=== PATIENT | male | born 1940 | race Caucasian/White ===

== ENCOUNTER 2018-07-17 08:02 | Emergency (ER) | payer OTHER, BC ==
[~2018-07-17] VITALS: Ht 186.7 cm; Wt 115.0 kg
[~2018-07-17 08:02] MED LIST: ADLSR60 PO; APR25 PO; ASPEC325 PO; ATEN50TA8 PO; ATOR-24 PO; AVD5 PO; CARB1CAP8 PO; CHOL100010 PO; DVN80 PO; FRS/40 PO; MELO15TA3 PO; MULT-506 PO
[2018-07-17 08:05] VITALS: TEMP 36.7; Ht 186.7 cm; Wt 115.0 kg
[2018-07-17] MEDS ORDERED: SODIUM CHLORIDE 0.9% 500ML 500 ML IV STA (08:20)
[2018-07-17 08:50] VITALS: O2SAT 96
[2018-07-17 08:53] LABS: BASO % 0.7 %; BASO ABS # 0.04 K/uL (0-0.2); EOS % 0.5 %; EOS ABS # 0.03 K/uL (0-0.5); HEMATOCRIT 44.7 % (42-52); HEMOGLOBIN 15.1 g/dL (14.0-18.0); IG# 0.02 K/uL (0.00-0.02); LYMPH % 21.1 %; LYMPH ABS # 1.18 K/uL (1.2-3.4); MEAN CELL VOLUME 90.7 fL (80-100); MEAN CORPUSCULAR HEMOGLOBIN 30.6 pg (25-34); MEAN CORPUSCULAR HGB CONC 33.8 g/dl (32-36); MEAN PLATELET VOLUME 10.3 fL (7.4-10.4); MONO ABS # 0.39 K/uL (0.11-0.59); NEUT % 70.3 %; NEUT ABS # 3.93 K/uL (1.4-6.5); PLATELET COUNT 263 K/uL (130-400); RED CELL DISTRIBUTION WIDTH CV 12.7 % (11.5-14.5); RED CELL DISTRIBUTION WIDTH SD 41.9 fL (36.4-46.3); WHITE BLOOD COUNT 5.59 K/uL (4.8-10.8)
--- NOTE | 2018-07-17 08:57 | EMERGENCY ROOM VISIT NOTE ---
History Report prepared by Berenice: Evaristo Ferrell Under the Supervision of: Dr. Aguila Guerrier M.D. First contact with patient: 08:11 Chief Complaint: RECTAL BLEEDING Stated Complaint: BLOOD IN STOOLS History of Present Illness The patient is a 78 year old male who presents to the Emergency Room with complaints of intermittent episodes of rectal bleeding that he first noticed 2 days ago. The patient states that he was sitting on the commode to have his "morning bowel movement." He states that he sneezed twice while sitting on the toilet and noticed that the bowl was "full of dark red blood." He notes that it was not black or pink, but "dark red." The patient notes that he had a bowel movement this morning and there was similar blood in the toilet today. The patient had his look at the blood and she describes the bowl as holding "quite a bit" of "deep red" blood. The patient denies any unusual shortness of breath or weakness. He does not a slight increase in abdominal pain from his baseline pain. He does ass that he drinks Prune juice daily. He has had multiple colonoscopies and notes that he does have a history of polyps. He is on Aspirin 81, but no other blood thinners. Source of History: patient Onset: 2 days ago Position: other (Rectal) Quality: other (GI Bleed) Timing: intermittent (2 episodes) Associated Symptoms: + abdominal pain, No SOB, No weakness Review of Systems See HPI for pertinent positives & negatives. A total of 10 systems reviewed and were otherwise negative. Past Medical & Surgical Medical Problems: (1) Epilepsy (2) Hypertension (3) Spinal stenosis Social History Problems: (1) Poliomyelitis Family History Hypertension Social History Smoking Status: Never Smoker Alcohol Use: occasionally Marital Status: Housing Status: lives with family Current/Historical Medications Scheduled Aspirin (Aspirin), 1 DOSE PO DAILY Atenolol (Tenormin), 50 MG PO DAILY Atorvastatin (Lipitor), 40 MG PO DAILY Carbamazepine (Carbatrol), 400 MG PO BID Finasteride (Proscar), 5 MG PO DAILY Furosemide (Lasix), 40 MG PO BID Hydralazine Hcl (Apresoline), 50 MG PO QID Nifedipine (Nifedipine Er), 60 MG PO DAILY Valsartan (Diovan), 320 MG PO DAILY Allergies Coded Allergies: Escitalopram (Unverified Allergy, Severe, SEIZURES, 07/17/18) Sulfa Drugs (Verified Allergy, Unknown, ., 07/17/18) Lisinopril (Verified Adverse Reaction, Unknown, ., 07/17/18) Physical Exam Vital Signs Date Time Temp Pulse Resp B/P (MAP) Pulse Ox O2 Delivery O2 Flow Rate FiO2 07/17/18 11:11 71 16 163/82 96 07/17/18 09:25 80 24 156/84 95 Room Air 07/17/18 08:50 96 Room Air 07/17/18 08:46 92 07/17/18 08:05 36.7 89 17 149/87 97 Room Air Physical Exam GENERAL: Awake, alert, well-appearing, in no acute distress HENT: Normocephalic, atraumatic. Oropharynx unremarkable. EYES: Normal conjunctiva. Sclera non-icteric. NECK: Supple. No nuchal rigidity. FROM. No JVD. RESPIRATORY: Clear to auscultation. CARDIAC: Regular rate, normal rhythm. Extremities warm and well perfused. Pulses equal. ABDOMEN: Soft, non-distended. No tenderness to palpation. No rebound or guarding. No masses. RECTAL: Deferred. MUSCULOSKELETAL: Chest examination reveals no tenderness. The back is symmetrical on inspection without obvious abnormality. There is no CVA tenderness to palpation. No joint edema. LOWER EXTREMITIES: Calves are equal size bilaterally and non-tender. No edema. No discoloration. NEURO: Normal sensorium. No sensory or motor deficits noted. SKIN: No rash or jaundice noted. RECTAL: There is a large amount of dark red blood per rectum. Medical Decision & Procedures Laboratory Results 07/17/18 08:38 Red Blood Count 4.93, Mean Corpuscular Volume 90.7, Mean Corpuscular Hemoglobin 30.6, Mean Corpuscular Hemoglobin Concent 33.8, Mean Platelet Volume 10.3, Neutrophils (%) (Auto) 70.3, Lymphocytes (%) (Auto) 21.1, Monocytes (%) (Auto) 7.0, Eosinophils (%) (Auto) 0.5, Basophils (%) (Auto) 0.7, Neutrophils # (Auto) 3.93, Lymphocytes # (Auto) 1.18, Monocytes # (Auto) 0.39, Eosinophils # (Auto) 0.03, Basophils # (Auto) 0.04 8/17/18 08:38 Test 07/17/18 08:38 07/17/18 08:45 White Blood Count 5.59 K/uL (4.8-10.8) Red Blood Count 4.93 M/uL (4.7-6.1) Hemoglobin 15.1 g/dL (14.0-18.0) Hematocrit 44.7 % (42-52) Mean Corpuscular Volume 90.7 fL (80-100) Mean Corpuscular Hemoglobin 30.6 pg (25-34) Mean Corpuscular Hemoglobin Concent 33.8 g/dl (32-36) Platelet Count 263 K/uL (130-400) Mean Platelet Volume 10.3 fL (7.4-10.4) Neutrophils (%) (Auto) 70.3 % Lymphocytes (%) (Auto) 21.1 % Monocytes (%) (Auto) 7.0 % Eosinophils (%) (Auto) 0.5 % Basophils (%) (Auto) 0.7 % Neutrophils # (Auto) 3.93 K/uL (1.4-6.5) Lymphocytes # (Auto) 1.18 K/uL (1.2-3.4) Monocytes # (Auto) 0.39 K/uL (0.11-0.59) Eosinophils # (Auto) 0.03 K/uL (0-0.5) Basophils # (Auto) 0.04 K/uL (0-0.2) RDW Standard Deviation 41.9 fL (36.4-46.3) RDW Coefficient of Variation 12.7 % (11.5-14.5) Immature Granulocyte % (Auto) 0.4 % Immature Granulocyte # (Auto) 0.02 K/uL (0.00-0.02) Prothrombin Time 10.4 SECONDS (9.0-12.0) Prothromb Time International Ratio 1.0 (0.9-1.1) Activated Partial Thromboplast Time 24.9 SECONDS (21.0-31.0) Partial Thromboplastin Ratio 1.0 Anion Gap 12.0 mmol/L (3-11) Est Creatinine Clear Calc Drug Dose 125.5 ml/min Estimated GFR () 108.1 Estimated GFR (Non- 93.3 BUN/Creatinine Ratio 15.1 (10-20) Calcium Level 8.9 mg/dl (8.5-10.1) Total Bilirubin 0.3 mg/dl (0.2-1) Direct Bilirubin 0.1 mg/dl (0-0.2) Aspartate Amino Transf (AST/SGOT) 29 U/L (15-37) Alanine Aminotransferase (ALT/SGPT) 44 U/L (12-78) Alkaline Phosphatase 97 U/L (45-117) Total Protein 7.5 gm/dl (6.4-8.2) Albumin 3.8 gm/dl (3.4-5.0) Lipase 105 U/L (73-393) Urine Color YELLOW Urine Appearance CLEAR (CLEAR) Urine pH 5.0 (4.5-7.5) Urine Specific Sells 1.010 (1.000-1.030) Urine Protein NEG (NEG) Urine Glucose (UA) NEG (NEG) Urine Ketones NEG (NEG) Urine Occult Blood NEG (NEG) Urine Nitrite NEG (NEG) Urine Bilirubin NEG (NEG) Urine Urobilinogen NEG (NEG) Urine Leukocyte Esterase TRACE (NEG) Urine WBC (Auto) 1-5 /hpf (0-5) Urine RBC (Auto) 0-4 /hpf (0-4) Urine Hyaline Casts (Auto) 1-5 /lpf (0-5) Urine Epithelial Cells (Auto) 5-10 /lpf (0-5) Urine Bacteria (Auto) 1+ (NEG) Labs reviewed by ED physician. Medications Administered Medications (Trade) Dose Ordered Sig/Crystal Route Start Time Stop Time Status Last Admin Dose Admin Sodium Chloride 500 ml @ 999 mls/hr Q31M STAT IV 07/17/18 08:20 07/17/18 08:50 DC 07/17/18 08:56 999 MLS/HR Potassium Chloride (Klor-Con M10) 40 meq STK-MED ONCE .ROUTE 07/17/18 09:32 07/17/18 09:33 DC 07/17/18 09:35 40 MEQ ECG Per My Interpretation Indication: other (Rectal Bleed) Rate (beats per minute): 83 Rhythm: normal sinus Findings: no acute ischemic change, no ectopy, other (No GUILLERMO/STD) ED Course 0811: Past medical records reviewed. The patient was evaluated in room B10. A complete history and physical examination was performed. 0927: I discussed the case with Lindsay Elias PA-C. She will evaluate the patient 1053: I discussed the case with Lindsay again at this time. She suggests sending the patient home with MiraLax. 1112: Upon reexamination the patient is resting in bed. I discussed results and treatment plan with the patient. He verbalizes agreement and understanding. The patient is ready for discharge. Medical Decision Prior records/ancillary studies reviewed. Triage Nursing notes reviewed. Differential diagnosis: Etiologies such as diverticulosis, AVM, coagulopathy, colitis, inflammatory bowel disease, malignancy, Jeanne-Barnard tear, esophagitis, peptic ulcer disease , variceal bleed, gastritis, epistaxis, fissure, hemorrhoids, as well as others were entertained. This is a 78-year-old male who presents the emergency department complaining of rectal bleed. There is dark red blood on physical examination however the patient's hemoglobin is stable. Based on these findings I did discuss the case with gastroenterology cone chocolate dipper who came down and independently evaluated the patient. They felt that the patient was safe enough to be discharged home. I reiterated to return if they felt dizzy or developed any shortness of breath or chest pain. Patient and are in agreement with the treatment plan. Medication Reconcilliation Current Medication List: was personally reviewed by me Blood Pressure Screening Patient's blood pressure: Elevated blood pressure Blood pressure disposition: Elevated BP felt to be situational Consults Time Called: 920 Consulting Physician: Lindsay Elias PA-C Returned Call: [phone] I discussed the case with Lindsay Elias PA-C. She will evaluate the patient 1053: I discussed the case with Lindsay again at this time. She suggests sending the patient home with MiraLax. Impression Primary Impression: Rectal bleed Scribe Attestation The scribe's documentation has been prepared under my direction and personally reviewed by me in its entirety. I confirm that the note above accurately reflects all work, treatment, procedures, and medical decision making performed by me. Departure Information Dispostion Home / Self-Care Referrals Blas Barron D.O. (PCP) Forms HOME CARE DOCUMENTATION FORM, IMPORTANT VISIT INFORMATION, WORK / SCHOOL INSTRUCTIONS Patient Instructions My [facility] Additional Instructions Follow up with DR Carranza's office You have been examined and treated today on an emergency basis only. This is not a substitute for, or an effort to provide, complete comprehensive medical care. It is impossible to recognize and treat all injuries or illnesses in a single emergency department visit. It is therefore important that you follow up closely with Dr Barron. Call as soon as possible for an appointment. Thank you for your time and consideration. I look forward to speaking with you again soon. Please don't hesitate to call us if you have any questions.
[2018-07-17] MEDS ORDERED: ATOR-24 PO (09:00)
[2018-07-17] MEDS ORDERED: CRBSR/200 PO (09:00)
[2018-07-17] MEDS ORDERED: ATEN50TA8 PO (09:00)
[2018-07-17] MEDS ORDERED: ASPI-470 PO (09:00)
[2018-07-17] MEDS ORDERED: FINA5TAB PO (09:00)
[2018-07-17] MEDS ORDERED: FRS/40 PO (09:00)
[2018-07-17] MEDS ORDERED: NIFE60TA66 PO (09:00)
[2018-07-17] MEDS ORDERED: HYDR-4717 PO (09:00)
[2018-07-17] MEDS ORDERED: VALS320T PO (09:00)
[2018-07-17 09:02] LABS: PTT PATIENT 24.9 SECONDS (21.0-31.0)
[2018-07-17 09:15] LABS: ALBUMIN 3.8 gm/dl (3.4-5.0); CALCIUM 8.9 mg/dl (8.5-10.1); CREATININE 0.66 mg/dl (0.60-1.40); POTASSIUM 3.3 mmol/L (3.5-5.1); TOTAL PROTEIN 7.5 gm/dl (6.4-8.2)
[2018-07-17] MEDS ORDERED: POTASSIUM CHLORIDE 20 MEQ TABCR PO STA (09:19)
[2018-07-17] MEDS ORDERED: POTASSIUM CHLORIDE 10 MEQ TABCR ONE (09:32)
[2018-07-17 11:11] VITALS: BP 163/82; PULSE 71; O2SAT 96
--- NOTE | 2018-07-17 11:30 | Gastrointestinal Consultation ---
Gastrointestinal Consultation Date of Consultation: Jul 17, 2018 Attending Physician: Aguila Guerrier Consulting Physician: Kim Guerin MD Reason for Consultation: rectal bleeding History of Present Illness Patient is a 78 year old male with a PMH noted below presenting to the ED for evaluation of rectal bleeding. He reports passing intermittent dark red blood with BMs, starting two days ago. He has had 2 episodes since onset. He typically has a BM about once daily, but does have a hx of mild intermittent constipation as well as a hx of hemorrhoids. He drinks prune juice at home regularly to help with his bowels. He has baseline diffuse pain secondary to his spinal stenosis and hx of poliomyelitis. He denies any increased abdominal pain over baseline, and has no n/v or heartburn. Good appetite. No weight loss. Last colonoscopy was in 2013, showing sigmoid diverticulosis and 2 polyps, only one of which was retrieved. Pathology was consistent with an adenomatous polyp. He takes an 81mg aspirin but no additional blood thinners. Blood work shows a stable hgb of 15.1. Past Medical/Surgical History Medical Problems: (1) Rectal bleed Status: Acute Past Medical History: HTN, dyslipidemia, spinal stenosis, poliomyelitis, epilepsy, BPH, chronic renal insufficiency, Basal cell skin CA Past Surgical History: cholecystectomy, appendectomy, tonsillectomy&adenoidectomy, parotid gland tumor excision, cataract Family History Hypertension Social History Smoking Status: Never Smoker Alcohol Use: occasionally Marital Status: Housing Status: lives with family Allergies Coded Allergies: Escitalopram (Unverified Allergy, Severe, SEIZURES, 07/17/18) Sulfa Drugs (Verified Allergy, Unknown, ., 07/17/18) Lisinopril (Verified Adverse Reaction, Unknown, ., 07/17/18) Current Medications Home Meds and Scripts Medications Dose Route/Sig Max Daily Dose Days Date Category Dose Instructions Nifedipine Er (Nifedipine) 60 Mg Tab 60 Mg PO DAILY 07/17/18 Reported Aspirin Unknown Strength Tab 1 Dose PO DAILY 07/17/18 Reported PT LIST SAYS 500 MG Lasix (Furosemide) 40 Mg Tab 40 Mg PO BID 07/17/18 Reported Tenormin (Atenolol) 50 Mg Tab 50 Mg PO DAILY 07/17/18 Reported Diovan (Valsartan) 320 Mg Tab 320 Mg PO DAILY 07/17/18 Reported Apresoline (Hydralazine Hcl) 50 Mg Tab 50 Mg PO QID 07/17/18 Reported Carbatrol (Carbamazepine) 200 Mg Capcr 400 Mg PO BID 07/17/18 Reported TWO 200 MG CAPS TWICE DAILY Lipitor (Atorvastatin Calcium) 40 Mg Tab 40 Mg PO DAILY 07/17/18 Reported Proscar (Finasteride) 5 Mg Tab 5 Mg PO DAILY 07/17/18 Reported Review of Systems Constitutional: No fever, No chills Eyes: No worsening of vision, No eye pain ENT: No hearing loss Respiratory: No cough, No shortness of breath Cardiac: No chest pain Abdomen: + see HPI Musculoskeletal: + joint pain, + muscle pain Male : No dysuria, No nocturia more than once/night Neuro: No memory loss Psych: No depression symptoms Heme: + abnormal bleeding/bruising Endo: No excessive thirst, No excessive urination Skin: No rash, No itch Physical Exam Date Time Temp Pulse Resp B/P (MAP) Pulse Ox O2 Delivery O2 Flow Rate FiO2 07/17/18 09:25 80 24 156/84 95 Room Air 07/17/18 08:50 96 Room Air 07/17/18 08:46 92 07/17/18 08:05 36.7 89 17 149/87 97 Room Air General Appearance: no apparent distress Eyes: normal inspection ENT: hearing grossly normal Neck: supple Respiratory/Chest: lungs clear, normal breath sounds, no respiratory distress Cardiovascular: regular rate, rhythm Abdomen: normal bowel sounds, non tender, soft, no organomegaly Extremities: + pedal edema (1-2+) Neurologic/Psych: alert, normal mood/affect Skin: warm/dry, no rash Laboratory Results Last 24 Hours Test 07/17/18 08:38 07/17/18 08:45 White Blood Count 5.59 K/uL Red Blood Count 4.93 M/uL Hemoglobin 15.1 g/dL Hematocrit 44.7 % Mean Corpuscular Volume 90.7 fL Mean Corpuscular Hemoglobin 30.6 pg Mean Corpuscular Hemoglobin Concent 33.8 g/dl Platelet Count 263 K/uL Mean Platelet Volume 10.3 fL Neutrophils (%) (Auto) 70.3 % Lymphocytes (%) (Auto) 21.1 % Monocytes (%) (Auto) 7.0 % Eosinophils (%) (Auto) 0.5 % Basophils (%) (Auto) 0.7 % Neutrophils # (Auto) 3.93 K/uL Lymphocytes # (Auto) 1.18 K/uL Monocytes # (Auto) 0.39 K/uL Eosinophils # (Auto) 0.03 K/uL Basophils # (Auto) 0.04 K/uL RDW Standard Deviation 41.9 fL RDW Coefficient of Variation 12.7 % Immature Granulocyte % (Auto) 0.4 % Immature Granulocyte # (Auto) 0.02 K/uL Prothrombin Time 10.4 SECONDS Prothromb Time International Ratio 1.0 Activated Partial Thromboplast Time 24.9 SECONDS Partial Thromboplastin Ratio 1.0 Sodium Level 138 mmol/L Potassium Level 3.3 mmol/L Chloride Level 103 mmol/L Carbon Dioxide Level 24 mmol/L Anion Gap 12.0 mmol/L Blood Urea Nitrogen 10 mg/dl Creatinine 0.66 mg/dl Est Creatinine Clear Calc Drug Dose 125.5 ml/min Estimated GFR () 108.1 Estimated GFR (Non- 93.3 BUN/Creatinine Ratio 15.1 Random Glucose 119 mg/dl Calcium Level 8.9 mg/dl Total Bilirubin 0.3 mg/dl Direct Bilirubin 0.1 mg/dl Aspartate Amino Transf (AST/SGOT) 29 U/L Alanine Aminotransferase (ALT/SGPT) 44 U/L Alkaline Phosphatase 97 U/L Total Protein 7.5 gm/dl Albumin 3.8 gm/dl Lipase 105 U/L Urine Color YELLOW Urine Appearance CLEAR Urine pH 5.0 Urine Specific Robbins 1.010 Urine Protein NEG Urine Glucose (UA) NEG Urine Ketones NEG Urine Occult Blood NEG Urine Nitrite NEG Urine Bilirubin NEG Urine Urobilinogen NEG Urine Leukocyte Esterase TRACE Urine WBC (Auto) 1-5 /hpf Urine RBC (Auto) 0-4 /hpf Urine Hyaline Casts (Auto) 1-5 /lpf Urine Epithelial Cells (Auto) 5-10 /lpf Urine Bacteria (Auto) 1+ Impression Patient is a 78 year old male presenting to the ED with a 2 day hx of intermittent rectal bleeding. He has a hx of diverticulosis as well as hemorrhoids Plan Hgb is stable and bleeding is only intermittent. No need for admission at this time. Will plan an OP colonoscopy next week at [facility]. Office will call him to schedule. Recommend Miralax 1-2 times daily for chronic constipation, as well as Anusol or preparation H suppositories qhs for treatment of hemorrhoids. I performed a history and physical examination of the patient, including specifically soft, nontender abdomen, I have discussed the patient's management with Monisha Martinez PA-C. Please refer to the PA's note for the documented findings and plan of care. Had intermittent recal bleed, in the ED had normal brown bowel movement but only blood on wiping, likely hemorrhoidal bleed. Colonoscopy in 2013 with polyps removed. Hgb is normal. No ongoing overt bleed hence will arrange for OP colonoscopy next week. Recall GI if needed.
== END 2018-07-17 11:12 | disposition home or self-care (01) ==
LOC: C.EDB 08:05
DX: K62.5 Hemorrhage of anus and rectum (principal); G40.909 Epilepsy, unspecified, not intractable, without status epilepticus; I12.9 Hypertensive chronic kidney disease with stage 1 through stage 4 chronic kidney disease, or unspecified chronic kidney disease; E78.5 Hyperlipidemia, unspecified; M48.00 Spinal stenosis, site unspecified; N40.0 Benign prostatic hyperplasia without lower urinary tract symptoms; N18.9 Chronic kidney disease, unspecified; Z85.828 Personal history of other malignant neoplasm of skin; Z79.82 Long term (current) use of aspirin; Z79.899 Other long term (current) drug therapy; Z88.2 Allergy status to sulfonamides; Z88.8 Allergy status to other drugs, medicaments and biological substances